=== PATIENT | male | born 1985 | race Asian ===

== ENCOUNTER 2024-11-14 13:23 | Outpatient (AMB) | payer OTHER, SELFPAY ==
--- NOTE | 2024-11-14 15:57 | PD.RESCLINIC ---
NM Intake Visit Data Collection PCP or OBGYN visit in last 3 months: No Smoking Status Smoking Status: Never smoker Immunization / Flu Flu Vaccine in the Last 12 Months: No Flu Vaccine Exclusion Criteria: No Exclusion Criteria Past Medical History Past Medical History CARDIAC: Positive Hypercholesterolemia and Hypertension Social History SMOKING STATUS: Smoking status: Never smoker Patient Portal Questionaires Social History Tobacco History Smoking Status: Never smoker Review of Systems Report any current symptoms Only answer those that you have currently: Past Medical History Past Medical History Have you ever been diagnosed with any of the following: Cardiology Problems Hypercholesterolemia: Yes Hypertension: Yes History of Present Illness HPI Narrative Patient is a 39-year-old male with past medical history of hypertension hyperlipidemia who conducted a phone visit to establish care. Patient states he would like to resume his previous medications that he was taking by his primary care physician. Currently has no complaints other than routine health checkup. Will recommend in office visit and obtain labs upon the patient's next visit. Assessment & Plan Diagnosis / Problem List (1) Hypertension: Status: Acute Qualifiers: Hypertension type: primary hypertension Qualified Code(s): I10 - Essential (primary) hypertension Plan: Continue with losartan 100 mg p.o. daily Amlodipine 5 mg p.o. daily Will order CBC and CMP to assess baseline metabolic health (2) Hyperlipidemia: Status: Acute Qualifiers: Hyperlipidemia type: pure hypercholesterolemia Qualified Code(s): E78.00 - Pure hypercholesterolemia, unspecified Plan: Continue rosuvastatin 20 mg p.o. at bedtime (3) Obesity: Status: Acute Qualifiers: Body mass index: BMI 34.0-34.9 Obesity classification: adult class 1 (BMI 30 - 34.9) Obesity type: unspecified obesity type Serious obesity comorbidity presence: with serious comorbidity Qualified Code(s): E66.811 - Obesity, class 1; Z68.34 - Body mass index [BMI] 34.0-34.9, adult Plan: Patient has been following a strict calorie diet with intermittent fasting and vigorous exercise with 45 minutes of daily cardiac exercise 5 times a week without significant success in weight loss. Patient informs me that he has previously tried other medications such as phentermine and Topamax for weight loss without improvement. We will wait till the patient comes to clinic and we can have baseline labs. Recommend to continue with strict calorie diet of 1500 kcal daily along with intermittent fasting and vigorous exercise of 60 minutes daily at least 4 times a week. Will continue to follow. Orders: Orders Comprehensive Metabolic Panel 11/14/24 I10 - Essential (primary) hypertension, Z00.00 - Encounter for general adult medical examination without abnormal findings Ambulatory Hemoglobin A1C 11/14/24 E66.811 - Obesity, class 1, E78.00 - Pure hypercholesterolemia, unspecified, I10 - Essential (primary) hypertension, Z68.34 - Body mass index [BMI] 34.0-34.9, adult Lipid Panel 11/14/24 E66.811 - Obesity, class 1, E78.00 - Pure hypercholesterolemia, unspecified, Z00.00 - Encounter for general adult medical examination without abnormal findings, Z68.34 - Body mass index [BMI] 34.0-34.9, adult CBC 11/14/24 Z00.00 - Encounter for general adult medical examination without abnormal findings Thyroid Stimulating Hormone 11/14/24 E66.811 - Obesity, class 1, Z00.00 - Encounter for general adult medical examination without abnormal findings, Z68.34 - Body mass index [BMI] 34.0-34.9, adult Vitamin D, 1,25-Dihydroxy* 11/14/24 E66.811 - Obesity, class 1, Z00.00 - Encounter for general adult medical examination without abnormal findings, Z68.34 - Body mass index [BMI] 34.0-34.9, adult Additional Assessment Attending note: I, Jose Stover MD, attest that I was physically present for the renae portions of the service completed via telehealth, and I reviewed and discussed the case with the resident and agree with the resident's plans of care as documented above. Initial visit completed via telehealth. History of hypertension, not able to check blood pressure today. We will continue his present medications. Patient on rosuvastatin for hyperlipidemia, continue. Patient self-reported weight falls into the obesity range. Continue to follow strict kilocalorie diet with intermittent fasting and exercise. May be candidate for GLP-1 for additional weight loss. Plan next visit in office. Jose Stover MD Physician Billing New Patient New Patient: E/M Level 2-CPT 05994
== END 2024-11-14 14:19 | disposition home or self-care (01) ==
LOC: HODAHC 13:23
PROVIDERS: PCP Student in an Organized Health Care Education/Training Program; Referring Provider Student in an Organized Health Care Education/Training Program; Supervising Provider Internal Medicine; Visit Provider Student in an Organized Health Care Education/Training Program
DX: I10 Essential (primary) hypertension (principal); E66.811 Obesity, class 1; Z68.34 Body mass index [BMI] 34.0-34.9, adult; E78.00 Pure hypercholesterolemia, unspecified
CPT/HCPCS: 99212; G0463

== ENCOUNTER → 2024-11-17 | Outpatient (CLI) | payer OTHER, SELFPAY ==
[2024-11-17 09:15] LABS: Basophils # (Auto) 0.1 Thou/mm3 (0.0-0.2); Basophils % (Auto) 1 % (0-2.5); Eosinophils # (Auto) 0.4 Thou/mm3 (0.0-0.5); Eosinophils % (Auto) 4 % (0-10); Hematocrit 45.6 % (41.0-53.0); Hemoglobin 15.5 g/dL (13.5-16.0); Immature Granulocytes % (Auto) 0 % (0-0); Immature Granulocytes Auto 0.03 Thou/mm3 (0.00-0.00); Lymphocytes # (Auto) 2.8 Thou/mm3 (1.0-4.8); Lymphocytes % (Auto) 32 % (10-50); Mean Corpuscular Hemoglobin 29.6 pg (25.0-35.0); Mean Corpuscular Volume 87 fL (80-100); Monocytes # (Auto) 0.9 Thou/mm3 (0.0-0.8); Monocytes % (Auto) 10 % (0-12); Neutrophils # (Auto) 4.7 Thou/mm3 (1.8-7.7); Neutrophils % (Auto) 53 % (37-80); Nucleated Red Blood Cell % 0 /100 WBC (0); Platelet Count 327 Thou/mm3 (140-440); RDW Standard Deviation 39.8 fL (35.1-43.9); Red Blood Count 5.23 Miln/mm3 (4.50-5.90); White Blood Count 8.8 Thou/mm3 (3.8-10.6)
[2024-11-17 09:35] LABS: Alanine Aminotransferase 45 U/L (10-49); Albumin, Serum 4.9 gm/dL (3.5-5.0); Albumin/Globulin Ratio 1.8 (1.2-2.2); Alkaline Phosphatase 108 U/L (46-116); Anion Gap 9 (7-16); Aspartate Amino Transferase 29 U/L (0-34); BUN/Creatinine Ratio 13 Ratio (12-20); Bilirubin,Total 0.8 mg/dL (0.3-1.2); Blood Urea Nitrogen 14 mg/dL (9-23); Calcium 10.3 mg/dL (8.3-10.6); Calcium (Corrected) 10.3 mg/dL (8.5-10.1); Cardiac Risk Estimate 3.5 RATIO (4.0-6.7); Chloride 105 mMol/L (98-107); Cholesterol 159 mg/dL (132-200); Creatinine (Component) 1.1 mg/dL (0.6-1.3); Globulin 2.8 gm/dL (2.3-3.5); Glucose 103 mg/dL (74-106); HDL Cholesterol 45 mg/dL (40-60); LDL Cholesterol,Calculated 95 mg/dL (0-130); Osmolality,Calculated 281 (275-295); Potassium 4.6 mMol/L (3.4-5.1); Sodium 141 mMol/L (136-145); Total Protein 7.7 gm/dL (5.7-8.2); Triglycerides 93 mg/dL (30-150); eGFR > 60 See Note
[2024-11-17 10:15] LABS: Glucose Estimated Average 108 mg/dL (80-131); Hemoglobin A1C 5.4 % Hgb (4.8-6.0)
[2024-11-21 06:35] LABS: Vitamin D,1,25 (OH)2,Total 45 pg/mL (18-72); Vitamin D2, 1,25 (OH)2 <8 pg/mL; Vitamin D3, 1,25 (OH)2 45 pg/mL
== END | disposition home or self-care (01) ==
PROVIDERS: PCP Student in an Organized Health Care Education/Training Program; Referring Provider Student in an Organized Health Care Education/Training Program; Visit Provider Student in an Organized Health Care Education/Training Program
DX: Z00.00 Encounter for general adult medical examination without abnormal findings (principal); I10 Essential (primary) hypertension; E66.811 Obesity, class 1; Z68.31 Body mass index [BMI] 31.0-31.9, adult; E78.00 Pure hypercholesterolemia, unspecified
CPT/HCPCS: 36415; 80053; 80061; 82652; 83036; 84443; 85025

== ENCOUNTER 2024-11-26 11:34 | Outpatient (AMB) | payer OTHER, SELFPAY ==
--- NOTE | 2024-11-26 11:41 | PD.RESCLINIC ---
Vital Signs 11/26/24 11:50 Height 1.68 m Height Method Stated Weight 93.497 kg Weight Measurement Method Standing Scale BMI 33.3 BP 118/67 Blood Pressure Source Automatic Cuff Blood Pressure Location Left Upper Arm Position Sitting Respiration 18 Pulse 86 Pulse Source Monitor Temp 97.3 F Temp Source Oral Pulse Oximetry (%) 98 Oxygen Delivery Method Room Air Allergies/Meds Allergies & Medications Allergies No Known Allergies Allergy (Verified 11/27/24 09:08) Medication Reconciliation amlodipine 5 mg tablet 5 mg PO QDAY #30 tabs 11/14/24 [Rx] losartan 100 mg tablet 100 mg PO QDAY #30 tabs 11/14/24 [Rx] rosuvastatin 20 mg tablet 20 mg PO QDAY #30 tabs 11/14/24 [Rx] tirzepatide (weight loss) 2.5 mg/0.5 mL subcutaneous pen injector (Zepbound) 2.5 mg (0.5 mL) subcut QWEEK #2 mL 11/26/24 [Rx Confirmed 11/27/24] MA Intake Visit Data Collection New Patient or Established: Established Patient (seen at [facility] within 3 years) Seen by Clinical Staff ONLY (RN/MA): No Pain Present Currently: No Pain scale:: 0 Pain Scale Used: Hdz-Rodriguez/Numerical Line Tester Required: No PCP or OBGYN visit in last 3 months: Yes Hx Now: No Do You Feel Safe at Home: Yes Smoking Status Smoking Status: Never smoker Immunization / Flu Flu Vaccine in the Last 12 Months: No Flu Vaccine Exclusion Criteria: No Exclusion Criteria Past Medical History Past Medical History CARDIAC: Positive Hypercholesterolemia and Hypertension Social History SMOKING STATUS: Smoking status: Never smoker Patient Portal Questionaires Social History Tobacco History Smoking Status: Never smoker Domestic Abuse History Do You Feel Safe at Home: Yes Review of Systems Report any current symptoms Only answer those that you have currently: Past Medical History Past Medical History Have you ever been diagnosed with any of the following: Cardiology Problems Hypercholesterolemia: Yes Hypertension: Yes History of Present Illness HPI Narrative Patient is a 39-year-old male with past medical history of hypertension and hyperlipidemia and obesity who came in to discuss weight loss options along with cardiac history. Patient has a strong family cardiac history of heart disease including CABG and mom along with cardiac stents in dad. Currently does not experience angina type symptoms with activity but has some distress due to longstanding history of chronic hypertension and hyperlipidemia. Patient also has been attempting weight loss for more than 1 year without significant improvement. Patient denies any chest pain, cough, headache, fever, nausea, vomiting, diarrhea or any other associated symptoms. Objective/Exam Narrative Physical exam: GENERAL: Alert and oriented x 3. No acute distress. Well-nourished. EYES: EOMI. Anicteric. HEENT: Moist mucous membranes. No scleral icterus. No cervical lymphadenopathy. LUNGS: Clear to auscultation bilaterally. No accessory muscle use. CARDIOVASCULAR: Regular rate and rhythm. No murmur. No JVD. ABDOMEN: Soft, non-tender and non-distended. No palpable masses. EXTREMITIES: All 4 extremeties intact. No edema. Nontender. SKIN: No rashes or lesions. Warm. NEUROLOGIC: No focal neurological deficits. CN II-XII grossly intact, but not individually tested. PSYCHIATRIC: Cooperative. Appropriate mood and affect. Assessment & Plan Diagnosis / Problem List (1) Obesity: Status: Acute Qualifiers: Body mass index: BMI 34.0-34.9 Obesity classification: adult class 1 (BMI 30 - 34.9) Obesity type: unspecified obesity type Serious obesity comorbidity presence: with serious comorbidity Qualified Code(s): E66.811 - Obesity, class 1; Z68.34 - Body mass index [BMI] 34.0-34.9, adult Assessment & Plan: Patient's weight is 206 pounds BMI of 33.6 Plan: Continue with calorie restriction of less than 1500 kcal/day Continue with strict vigorous exercise 45 minutes 4-5 times weekly Patient is not a candidate for phentermine/Topamax for weight loss due to strong family history of cardiac disease Will attempt to order Zepbound 2.5 mg once weekly to see if patient can tolerate GLP-1 medications (2) Hyperlipidemia: Status: Acute Qualifiers: Hyperlipidemia type: pure hypercholesterolemia Qualified Code(s): E78.00 - Pure hypercholesterolemia, unspecified Assessment & Plan: Patient has longstanding history of hyperlipidemia and has been taking statins for more than 1 year Plan: Continue with rosuvastatin 20 mg p.o. at bedtime (3) Hypertension: Status: Acute Qualifiers: Hypertension type: primary hypertension Qualified Code(s): I10 - Essential (primary) hypertension Assessment & Plan: Patient has longstanding history of hypertension and has been taking antihypertensives for more than 4 years Strong family history of cardiac disease including cardiac stents and father and CABG in mother Plan: Continue with amlodipine 5 mg p.o. daily Losartan 100 mg p.o. daily (4) Obstructive sleep apnea: Status: Acute Assessment & Plan: Patient has longstanding history of snoring at night noted in complaints with his spouse Patient has no issues with falling asleep but feels tired in the morning, sometimes experiences symptoms of brain fog, and feels that he has difficulty with memory Plan: Will attempt to obtain sleep study to assess if patient is a candidate for CPAP machine Orders: Referrals Sleep Study E66.811 - Obesity, class 1, G47.33 - Obstructive sleep apnea (adult) (pediatric), I10 - Essential (primary) hypertension, Z68.34 - Body mass index [BMI] 34.0-34.9, adult Cardiology E66.811 - Obesity, class 1, E78.00 - Pure hypercholesterolemia, unspecified, G47.33 - Obstructive sleep apnea (adult) (pediatric), I10 - Essential (primary) hypertension, Z68.34 - Body mass index [BMI] 34.0-34.9, adult Office Procedures [facility] Level of Care Nursing/Assessment Patient Status: Established Patient Nursing Assessment/Reassessment: Medication Reconciliation, Update PMH in EMR and Vital Signs Coordination of Care: Complex Care and Chronic Disease 1-5, Consent,records obtained, informed consent, Education Simp Pt/Fam and Staff clarify orders Established Patient Charge Established Patient Point Assignment: 85 Established Patient Point Charge: EP Level 3 (80-115)
[2024-11-26 11:50] VITALS: BP 118/67; PULSE 86; RESP 18; TEMP 36.3; O2SAT 98; BMI 33.3
== END 2024-11-26 12:10 | disposition home or self-care (01) ==
LOC: HODAHC 11:34
PROVIDERS: PCP Student in an Organized Health Care Education/Training Program; Referring Provider Student in an Organized Health Care Education/Training Program; Supervising Provider Internal Medicine; Visit Provider Student in an Organized Health Care Education/Training Program
DX: E66.811 Obesity, class 1 (principal); I10 Essential (primary) hypertension; G47.33 Obstructive sleep apnea (adult) (pediatric); E78.00 Pure hypercholesterolemia, unspecified; Z68.33 Body mass index [BMI] 33.0-33.9, adult
CPT/HCPCS: 99213; G0463

== ENCOUNTER 2025-03-11 09:03 | Outpatient (AMB) | payer OTHER, SELFPAY ==
[2025-03-11 09:09] VITALS: BP 124/88; PULSE 84; RESP 18; TEMP 36.8; O2SAT 97; BMI 31.0
--- NOTE | 2025-03-11 09:09 | PD.RESCLINIC ---
Vital Signs 03/11/25 09:09 Height 5 ft 6.14 in Height Method Stated Weight 87.543 kg Weight Measurement Method Standing Scale BMI 31.0 BP 124/88 H Blood Pressure Source Automatic Cuff Blood Pressure Location Right Upper Arm Position Sitting Respiration 18 Pulse 84 Pulse Source Monitor Temp 98.2 F Temp Source Temporal Artery Scan Pulse Oximetry (%) 97 Oxygen Delivery Method Room Air Allergies/Meds Allergies & Medications Allergies No Known Allergies Allergy (Verified 03/11/25 09:10) Medication Reconciliation amlodipine 5 mg tablet 5 mg PO QDAY #30 tabs 01/26/25 [Rx Confirmed 03/11/25] losartan 100 mg tablet 100 mg PO QDAY #30 tabs 01/26/25 [Rx Confirmed 03/11/25] ondansetron 4 mg disintegrating tablet 4 mg PO Q8H #60 tabs 01/26/25 [Rx Confirmed 03/11/25] rosuvastatin 20 mg tablet 20 mg PO QDAY #30 tabs 01/26/25 [Rx Confirmed 03/11/25] tirzepatide 10 mg/0.5 mL subcutaneous pen injector 10 mg (0.5 mL) subcut QWEEK #2 mL 02/24/25 [Rx Confirmed 03/11/25] MA Intake Visit Data Collection New Patient or Established: Established Patient (seen at [facility] within 3 years) Seen by Clinical Staff ONLY (RN/MA): No Pain Present Currently: No Pain scale:: 0 Pain Scale Used: Hdz-Rodriguez/Numerical Minister Of Religion Required: No PCP or OBGYN visit in last 3 months: No Hx Now: No Do You Feel Safe at Home: Yes Authorities Contacted: N/A Smoking Status Smoking Status: Never smoker Immunization / Flu Flu Vaccine in the Last 12 Months: No Flu Vaccine Exclusion Criteria: No Exclusion Criteria Past Medical History Past Medical History CARDIAC: Positive Hypercholesterolemia and Hypertension Social History SMOKING STATUS: Smoking status: Never smoker Patient Portal Questionaires Social History Tobacco History Smoking Status: Never smoker Domestic Abuse History Do You Feel Safe at Home: Yes Review of Systems Report any current symptoms Only answer those that you have currently: Past Medical History Past Medical History Have you ever been diagnosed with any of the following: Cardiology Problems Hypercholesterolemia: Yes Hypertension: Yes History of Present Illness HPI Narrative 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 Patient had labs drawn this morning at the [facility] lab and will follow-up with those once they have resulted. He states that he has had 6 kg of weight loss and is able to tolerate the Zepbound without side effects. Has been exercising 4 times a week and states that his blood pressure is under better control and that his snoring has improved. STOP-BANG score of 2. He states that he is feeling much better denies any shortness of breath, cough, chest pain, fatigue, fever, nausea, vomiting, changes in bowel habits or urinary habits. Review of Systems Review of Systems Systems Reviewed: All systems reviewed, normal except as documented Assessment & Plan Diagnosis / Problem List (1) Obstructive sleep apnea: Status: Acute Assessment & Plan: Initial STOP-BANG score of 4 Due to loud snoring, hypertension, male gender symptoms of fatigue and tiredness during the day Plan: Stop bang score improved to 2 No longer feeling symptoms of fatigue and tiredness and partner is not complaining of loud snoring (2) Obesity: Status: Acute Qualifiers: Obesity type: unspecified obesity type Obesity classification: adult class 1 (BMI 30 - 34.9) Serious obesity comorbidity presence: with serious comorbidity Body mass index: BMI 34.0-34.9 Qualified Code(s): E66.811 - Obesity, class 1; Z68.34 - Body mass index [BMI] 34.0-34.9, adult Assessment & Plan: On Zepbound 10 mg weekly Initial weight 93 kg Current weight 87 kg Plan: Continue with Zepbound as tolerated and will titrate up on dose once patient's weight plateaus Continue with daily exercise and lifestyle changes Follow a high-protein low carbohydrate diet and continue with calorie deficit to promote weight loss Recommend weightbearing exercises to improve muscle mass (3) Hypertension: Status: Acute Qualifiers: Hypertension type: primary hypertension Qualified Code(s): I10 - Essential (primary) hypertension Assessment & Plan: On losartan 100 mg Amlodipine 5 mg Plan: Patient concerned with diastolic blood pressure at 88 Patient is tolerating his antihypertensive regimen and blood pressure is well-controlled at home recommended not to worry about the diastolic blood pressure currently As patient continues to lose weight it is our suspicion that his antihypertensive regimen will reduce (4) Hyperlipidemia: Status: Acute Qualifiers: Hyperlipidemia type: pure hypercholesterolemia Qualified Code(s): E78.00 - Pure hypercholesterolemia, unspecified Assessment & Plan: History of hyperlipidemia on rosuvastatin 20 mg p.o. daily Plan: Lipid panel done this morning and will follow-up with results Will titrate up on medication if patient requires higher doses Will follow-up with CBC, CMP, TSH, lipid panel Office Procedures [facility] Level of Care Nursing/Assessment Patient Status: Established Patient Nursing Assessment/Reassessment: Medication Reconciliation, Update PMH in EMR and Vital Signs Coordination of Care: Complex Care and Chronic Disease 1-5, Consent,records obtained, informed consent, Education Simp Pt/Fam and Staff clarify orders Established Patient Charge Established Patient Point Assignment: 85 Established Patient Point Charge: EP Level 3 (80-115)
== END 2025-03-11 09:24 | disposition home or self-care (01) ==
LOC: HODAHC 09:03
PROVIDERS: Supervising Provider Internal Medicine; Visit Provider Student in an Organized Health Care Education/Training Program
DX: G47.33 Obstructive sleep apnea (adult) (pediatric) (principal); E66.811 Obesity, class 1; Z68.31 Body mass index [BMI] 31.0-31.9, adult; I10 Essential (primary) hypertension; E78.00 Pure hypercholesterolemia, unspecified
CPT/HCPCS: 99213; G0463

== ENCOUNTER → 2025-03-11 | Outpatient (CLI) | payer OTHER, SELFPAY ==
[2025-03-11 10:02] LABS: Basophils # (Auto) 0.1 Thou/mm3 (0.0-0.2); Basophils % (Auto) 1 % (0-2.5); Eosinophils # (Auto) 0.2 Thou/mm3 (0.0-0.5); Eosinophils % (Auto) 3 % (0-10); Hematocrit 44.2 % (41.0-53.0); Hemoglobin 15.2 g/dL (13.5-16.0); Immature Granulocytes % (Auto) 0 % (0-0); Immature Granulocytes Auto 0.01 Thou/mm3 (0.00-0.00); Lymphocytes % (Auto) 29 % (10-50); Mean Corpuscular HGB Conc 34.4 g/dl (31.0-37.0); Mean Corpuscular Hemoglobin 29.7 pg (25.0-35.0); Mean Corpuscular Volume 87 fL (80-100); Monocytes # (Auto) 0.7 Thou/mm3 (0.0-0.8); Monocytes % (Auto) 10 % (0-12); Neutrophils # (Auto) 3.9 Thou/mm3 (1.8-7.7); Neutrophils % (Auto) 57 % (37-80); Nucleated Red Blood Cell % 0 /100 WBC (0); Platelet Count 298 Thou/mm3 (140-440); RDW Standard Deviation 39.3 fL (35.1-43.9); Red Blood Count 5.11 Miln/mm3 (4.50-5.90); White Blood Count 6.8 Thou/mm3 (3.8-10.6)
[2025-03-11 10:13] LABS: Glucose Estimated Average 100 mg/dL (80-131); Hemoglobin A1C 5.1 % Hgb (4.8-6.0)
[2025-03-11 10:27] LABS: Alanine Aminotransferase 34 U/L (10-49); Albumin, Serum 4.5 gm/dL (3.5-5.0); Albumin/Globulin Ratio 1.6 (1.2-2.2); Alkaline Phosphatase 78 U/L (46-116); Anion Gap 9 (7-16); Aspartate Amino Transferase 27 U/L (0-34); BUN/Creatinine Ratio 13 Ratio (12-20); Bilirubin,Total 0.8 mg/dL (0.3-1.2); Blood Urea Nitrogen 14 mg/dL (9-23); Calcium 9.4 mg/dL (8.3-10.6); Calcium (Corrected) 9.4 mg/dL (8.5-10.1); Carbon Dioxide 24.8 mMol/L (20.0-31.0); Cardiac Risk Estimate 3.1 RATIO (4.0-6.7); Chloride 110 mMol/L (98-107); Cholesterol 113 mg/dL (132-200); Creatinine (Component) 1.1 mg/dL (0.6-1.3); Globulin 2.8 gm/dL (2.3-3.5); Glucose 96 mg/dL (74-106); HDL Cholesterol 36 mg/dL (40-60); LDL Cholesterol,Calculated 62 mg/dL (0-130); Osmolality,Calculated 287 (275-295); Potassium 4.2 mMol/L (3.4-5.1); Sodium 144 mMol/L (136-145); Thyroid Stimulating Hormone 1.51 uIU/mL (0.55-4.78); Total Protein 7.3 gm/dL (5.7-8.2); Triglycerides 77 mg/dL (30-150); eGFR > 60 See Note
[2025-03-11 11:11] LABS: Hepatitis A Antibody IgM Non Reactive (Non React); Hepatitis B Core Antibody IgM Non Reactive (Non React); Hepatitis B Surface Antigen Non Reactive (Non React); Hepatitis C Antibody Non Reactive (Non React)
[2025-03-11 16:13] LABS: HIV (1&2) Antibody Rapid Non-Reactive
== END | disposition home or self-care (01) ==
PROVIDERS: PCP Student in an Organized Health Care Education/Training Program; Referring Provider Student in an Organized Health Care Education/Training Program; Visit Provider Student in an Organized Health Care Education/Training Program
DX: Z00.00 Encounter for general adult medical examination without abnormal findings (principal); E66.811 Obesity, class 1; Z68.34 Body mass index [BMI] 34.0-34.9, adult; I10 Essential (primary) hypertension; E78.00 Pure hypercholesterolemia, unspecified
CPT/HCPCS: 36415; 80053; 80061; 80074; 83036; 84443; 85025; 86703